=== PATIENT | female | born 1965 | race Caucasian/White ===

== ENCOUNTER 2019-02-11 16:01 | Inpatient (IN) | payer MEDICARE ==
[~2019-02-11] VITALS: Ht 165.1 cm; Wt 96.1 kg
[2019-02-11] VITALS (22 sets, daily range): BP systolic 102–145; BP diastolic 65–99; BMI 33.5
[2019-02-11 17:31] LABS: HEMATOCRIT 41.2 % (36.0-48.0); HEMOGLOBIN 13.5 g/dL (12-16); MCHC 32.8 g/dL (31.0-37.0); MCV 88.6 fL (80.0-100.0); MEAN PLATELET VOLUME 12.4 fL (7.4-10.4); PLATELET COUNT 241 10x3/uL (130-400); RBC 4.65 10x6/uL (4.00-5.40); RDW 15.3 % (11.5-14.5)
[2019-02-11 17:36] LABS: APTT 24.6 SECONDS (22.8-39.4); INR 1.14 (0.85-1.17); PROTIME 14.1 SECONDS (11.6-15.0)
[2019-02-11 17:37] LABS: APPEARANCE HAZY (CLEAR); BILIRUBIN NEGATIVE (NEGATIVE); COLOR YELLOW (YELLOW); GLUCOSE 50 mg/dL (NEGATIVE); KETONE NEGATIVE (NEGATIVE); NITRITE NEGATIVE (NEGATIVE); PROTEIN 1+ mg/dL (NEGATIVE); UROBILINOGEN NORMAL (NORMAL)
[2019-02-11 17:38] LABS: BACTERIA MANY /hpf (NONE SEEN); MUCUS <1+ /lpf (NONE SEEN); RED CELLS - URINE >50 /hpf (0-5); YEAST >1+ WITH HYPHAE /hpf (NONE SEEN)
[2019-02-11 17:46] LABS: ALBUMIN 2.9 g/dL (3.4-5.0); ALKALINE PHOSPHATASE 232 U/L (46-116); ALT (SGPT) 185 U/L (10-68); BILIRUBIN - TOTAL 0.51 mg/dL (0.2-1.3); CALC OSMOLALITY 291 mosm/kg (275-300); CALCIUM 9.6 mg/dL (8.5-10.1); CARBON DIOXIDE 22.6 mmol/L (21.0-32.0); CHLORIDE - SERUM 104 mmol/L (98-107); CREATININE - SERUM 1.2 mg/dL (0.6-1.3); GLUCOSE 154 mg/dL (74-106); POTASSIUM - SERUM 4.4 mmol/L (3.5-5.1); PROTEIN - SERUM 7.5 g/dL (6.4-8.2); SODIUM 142 mmol/L (136-145); UREA NITROGEN 28 mg/dL (7-18); eGFR NON AFRICAN AMERICAN 50 mL/min (90-120)
[2019-02-11 18:02] LABS: CKMB 1.2 U/L (0.0-3.6); CREATINE KINASE 183 UL (21-215)
[2019-02-11 18:08] LABS: TROPONIN-I 0.128 ng/mL (0.000-0.060)
[2019-02-11 18:38] LABS: EOSINOPHILS 2 % (0-7); LYMPHOCYTES 7 % (15-50); MONOCYTES 2 % (2-11); NEUTROPHILS 89 % (40-80); PLATELET ESTIMATE NORMAL
[2019-02-11] MEDS ORDERED: COREG25 MG PO (22:15)
[2019-02-11] MEDS ORDERED: NEURONTIN 300300 MG PT (22:18)
[2019-02-11] MEDS ORDERED: COZAAR100 MG PT (22:27)
[2019-02-11] MEDS ORDERED: VIGAMOX3 ML LEFT EYE (22:28)
[2019-02-11] MEDS ORDERED: PRED FORTE5 ML LEFT EYE (22:29)
[2019-02-11] MEDS ORDERED: ZOLOFT100 MG PT (22:30)
[2019-02-11] MEDS ORDERED: ULTRAM50 MG PT (22:31)
[2019-02-12] VITALS (54 sets, daily range): BP systolic 123–162; BP diastolic 84–96; Ht 165.1 cm; Wt 96.1 kg
[2019-02-12 04:18] LABS: BASOPHILS 0.1 % (0-2); EOSINOPHILS 0.6 % (0-7); HEMATOCRIT 33.1 % (36.0-48.0); IMMATURE GRANULOCYTES 0.3 % (0-5); LYMPHOCYTES 14.7 % (15-50); MCH 28.4 pg (26.0-34.0); MCHC 33.2 g/dL (31.0-37.0); MONOCYTES 8.1 % (2-11); NEUTROPHILS 76.2 % (40-80); PLATELET COUNT 213 10x3/uL (130-400); RBC 3.88 10x6/uL (4.00-5.40); RDW 14.8 % (11.5-14.5)
[2019-02-12 04:24] LABS: MCV 85.3 fL (80.0-100.0)
[2019-02-12 04:33] LABS: ANION GAP 16.8 mmol/L (8-16); CALCIUM 8.7 mg/dL (8.5-10.1); CARBON DIOXIDE 22.4 mmol/L (21.0-32.0)
[2019-02-12 04:43] LABS: POTASSIUM - SERUM 3.2 mmol/L (3.5-5.1)
[2019-02-13] VITALS (24 sets, daily range): BP systolic 139–186; BP diastolic 81–116
[2019-02-13 04:31] LABS: BASOPHILS 0.2 % (0-2); EOSINOPHILS 3.8 % (0-7); HEMATOCRIT 30.1 % (36.0-48.0); HEMOGLOBIN 9.9 g/dL (12-16); IMMATURE GRANULOCYTES 0.2 % (0-5); LYMPHOCYTES 20.6 % (15-50); MCH 28.3 pg (26.0-34.0); MCHC 32.9 g/dL (31.0-37.0); MEAN PLATELET VOLUME 11.9 fL (7.4-10.4); MONOCYTES 11.3 % (2-11); NEUTROPHILS 63.9 % (40-80); PLATELET COUNT 195 10x3/uL (130-400); RDW 15.4 % (11.5-14.5)
[2019-02-13 04:37] LABS: CALCIUM 8.7 mg/dL (8.5-10.1); CREATININE - SERUM 0.9 mg/dL (0.6-1.3)
--- NOTE | 2019-02-13 18:46 | MORECARE ---
CASE MANAGEMENT DISCHARGE SUMMARY PATIENT: RADHA LEE UNIT: [id number] ADM DATE: 02/11/19 AGE: 53 : 69 SEX: F ROOM/BED: D.2303 AUTHOR: MILLI EDWARDS PHYSICIAN: REFERRING PHYSICIAN: ISHA OLIVEIRA MD DATE OF SERVICE: 02/13/19 Discharge Plan Patient Name: RADHA LEE Facility: [facility]:[place] : 1965 Planned Disposition: Anticipated Discharge Date: Discharge Date: Expected LOS: Initial Reviewer: [email or web address] Initial Review Date: 02/11/2019 Generated: 02/13/19 7:46 pm Comments DCP- Discharge Planning Updated by [email or web address]: Guadalupe Cottrell on 02/13/19 5:[address] CM attempted to visit with patient regarding discharge planning/ needs. Patient currently on vent no family available. [facility] CM will continue to follow and assist as needed with discharge planning / needs Patient Name: RADHA LEE Page [id number] at 1846 All edits/amendments must be made on the electronic document DICTATION DATE: 02/13/191844 ALCOHOLIC COUNSELOR: WHITLEY 02/13/191844 RPT#: [id number] DC DATE: STATUS: ADM IN [facility] [address] [place] [address] END OF REPORT
[2019-02-14] VITALS (24 sets, daily range): BP systolic 140–174; BP diastolic 76–100
[2019-02-14 04:39] LABS: BASOPHILS 0.2 % (0-2); EOSINOPHILS 4.6 % (0-7); HEMATOCRIT 29.6 % (36.0-48.0); HEMOGLOBIN 9.9 g/dL (12-16); IMMATURE GRANULOCYTES 0.1 % (0-5); MCH 28.4 pg (26.0-34.0); MCHC 33.4 g/dL (31.0-37.0); MCV 84.8 fL (80.0-100.0); MEAN PLATELET VOLUME 12.3 fL (7.4-10.4); MONOCYTES 9.1 % (2-11); PLATELET COUNT 213 10x3/uL (130-400); RBC 3.49 10x6/uL (4.00-5.40); WBC 8.5 10x3/uL (4.8-10.8)
[2019-02-14 04:49] LABS: % SATURATION 17 % (15-55); IRON 30 ug/dl (35-150); TOTAL IRON BIND CAPACITY 171 ug/dl (260-445); UNSAT IRON BIND CAPACITY 141 ug/dl (150-375)
[2019-02-14 04:58] LABS: CALCIUM 9.1 mg/dL (8.5-10.1); CARBON DIOXIDE 21.2 mmol/L (21.0-32.0); CHLORIDE - SERUM 109 mmol/L (98-107); CREATININE - SERUM 0.7 mg/dL (0.6-1.3); FERRITIN 623 ng/mL (3-244); GLUCOSE 83 mg/dL (74-106); SODIUM 142 mmol/L (136-145); eGFR NON AFRICAN AMERICAN > 90 mL/min (90-120)
[2019-02-14 05:08] LABS: CALC OSMOLALITY 281 mosm/kg (275-300); UREA NITROGEN 12 mg/dL (7-18)
[2019-02-14 05:09] LABS: POTASSIUM - SERUM 2.6 mmol/L (3.5-5.1)
[2019-02-14 08:03] LABS: APPEARANCE SL CLDY (CLEAR); BACTERIA FEW /hpf (NONE SEEN); BILIRUBIN NEGATIVE (NEGATIVE); COLOR YELLOW (YELLOW); EPITHELIAL CELLS 0-5 /hpf (0-5); GLUCOSE NEGATIVE (NEGATIVE); KETONE MODERATE mg/dL (NEGATIVE); NITRITE NEGATIVE (NEGATIVE); PROTEIN NEGATIVE (NEGATIVE); SPECIFIC GRAVITY 1.015 (1.005-1.020); UROBILINOGEN NORMAL (NORMAL); WHITE CELLS - URINE 0-5 /hpf (0-5)
[2019-02-14 08:07] LABS: RED CELLS - URINE RARE /hpf (0-5); YEAST >1+ WITH HYPHAE /hpf (NONE SEEN)
--- NOTE | 2019-02-14 18:49 | MORECARE ---
CASE MANAGEMENT DISCHARGE SUMMARY PATIENT: RADHA LEE UNIT: [id number] ADM DATE: 02/11/19 AGE: 53 : 69 SEX: F ROOM/BED: D.2303 AUTHOR: MILLI EDWARDS PHYSICIAN: REFERRING PHYSICIAN: ISHA OLIVEIRA MD DATE OF SERVICE: 02/14/19 Discharge Plan Patient Name: RADHA LEE Facility: [facility]:[place] : 1965 Planned Disposition: Anticipated Discharge Date: Discharge Date: Expected LOS: Initial Reviewer: [email or web address] Initial Review Date: 02/11/2019 Generated: 02/14/19 7:49 pm Comments DCP- Discharge Planning Updated by [email or web address]: Guadalupe Cottrell on 02/14/19 5:[address] CM spoke with Pooja Rust from the [facility] and had given an update on patient. She stated that the patient was in a SNF bed @ the [facility] and had only been there 2 days prior to admission. She said patient will need PT and OT eval before they will be able to readmit. CM will continue to follow and update Pooja on patients status. DCP- Discharge Planning Updated by [email or web address]: Guadalupe Cottrell on 02/13/19 5:[address] CM attempted to visit with patient regarding discharge planning/ needs. Patient currently on vent no family available. Patient resides at The [facility] CM will continue to follow and assist as needed with discharge planning / needs Last DP export: 02/13/19 5:46 p Patient Name: RADHA LEE Page [id number] at 1849 All edits/amendments must be made on the electronic document DICTATION DATE: 02/14/191848 ACROBATIC DANCER: WHITLEY 02/14/191848 RPT#: [id number] DC DATE: STATUS: ADM IN [facility] [address] [place] [address] END OF REPORT
[2019-02-15] VITALS (24 sets, daily range): BP systolic 133–188; BP diastolic 75–99
[2019-02-15 04:06] LABS: BASOPHILS 0.4 % (0-2); EOSINOPHILS 3.8 % (0-7); HEMATOCRIT 31.5 % (36.0-48.0); HEMOGLOBIN 10.3 g/dL (12-16); IMMATURE GRANULOCYTES 0.4 % (0-5); LYMPHOCYTES 24.2 % (15-50); MCHC 32.7 g/dL (31.0-37.0); MCV 85.6 fL (80.0-100.0); MONOCYTES 12.2 % (2-11); PLATELET COUNT 200 10x3/uL (130-400); RBC 3.68 10x6/uL (4.00-5.40); RDW 15.2 % (11.5-14.5); WBC 7.7 10x3/uL (4.8-10.8)
[2019-02-15 04:24] LABS: ALBUMIN 2.4 g/dL (3.4-5.0); ALKALINE PHOSPHATASE 123 U/L (46-116); ALT (SGPT) 54 U/L (10-68); BILIRUBIN - DIRECT 0.12 mg/dL (0.00-0.30); BILIRUBIN - INDIRECT 0.46 mg/dL (0.00-1.00); BILIRUBIN - TOTAL 0.58 mg/dL (0.2-1.3); CALC OSMOLALITY 279 mosm/kg (275-300); CALCIUM 9.3 mg/dL (8.5-10.1); CARBON DIOXIDE 23.2 mmol/L (21.0-32.0); CHLORIDE - SERUM 108 mmol/L (98-107); CREATININE - SERUM 0.7 mg/dL (0.6-1.3); GLUCOSE 94 mg/dL (74-106); PROTEIN - SERUM 6.6 g/dL (6.4-8.2); SODIUM 141 mmol/L (136-145); UREA NITROGEN 9 mg/dL (7-18); VANCOMYCIN - RANDOM 26.5 ug/mL (10.0-20.0); eGFR NON AFRICAN AMERICAN > 90 mL/min (90-120)
[2019-02-15 04:26] LABS: POTASSIUM - SERUM 3.2 mmol/L (3.5-5.1)
--- NOTE | 2019-02-15 12:30 | MORECARE ---
CASE MANAGEMENT DISCHARGE SUMMARY PATIENT: RADHA LEE UNIT: [id number] ADM DATE: 02/11/19 AGE: 53 : 69 SEX: F ROOM/BED: D.2303 AUTHOR: MILLI EDWARDS PHYSICIAN: REFERRING PHYSICIAN: ISHA OLIVEIRA MD DATE OF SERVICE: 02/15/19 Discharge Plan Patient Name: RADHA LEE Facility: [facility]:[place] : 1965 Planned Disposition: Anticipated Discharge Date: Discharge Date: Expected LOS: Initial Reviewer: [email or web address] Initial Review Date: 02/11/2019 Generated: 02/15/19 1:30 pm Comments DCP- Discharge Planning Updated by [email or web address]: Guadalupe Cottrell on 02/14/19 5:[address] CM spoke with Pooja Rust from the [facility] and had given an update on patient. She stated that the patient was in a SNF bed @ the [facility] and had only been there 2 days prior to admission. She said patient will need PT and OT eval before they will be able to readmit. CM will continue to follow and update Pooja on patients status. DCP- Discharge Planning Updated by [email or web address]: Guadalupe Cottrell on 02/13/19 5:[address] CM attempted to visit with patient regarding discharge planning/ needs. Patient currently on vent no family available. Patient resides at The [facility] CM will continue to follow and assist as needed with discharge planning / needs External Providers External Provider: [facility] Next Contact Date: Service Request Date: Service Type: Resolution: Reviewer: Comments: Last DP export: 02/14/19 5:49 p Patient Name: RADHA LEE Page [id number] at 1230 All edits/amendments must be made on the electronic document DICTATION DATE: 02/15/19 1230 DOMESTIC HELPER: WHITLEY 02/15/19 1230 RPT#: [id number] DC DATE: STATUS: ADM IN [facility] [address] [place] [address] END OF REPORT
--- NOTE | 2019-02-15 17:35 | MORECARE ---
CASE MANAGEMENT DISCHARGE SUMMARY PATIENT: RADHA LEE UNIT: [id number] ADM DATE: 02/11/19 AGE: 53 : 69 SEX: F ROOM/BED: D.2303 AUTHOR: MILLI EDWARDS PHYSICIAN: REFERRING PHYSICIAN: ISHA OLIVEIRA MD DATE OF SERVICE: 02/15/19 Discharge Plan Patient Name: RADHA LEE Facility: [facility]:[place] : 1965 Planned Disposition: Senior Living Facility Anticipated Discharge Date: Discharge Date: Expected LOS: Initial Reviewer: [email or web address] Initial Review Date: 02/11/2019 Generated: 02/15/19 6:35 pm Comments DCP- Discharge Planning Updated by [email or web address]: Guadalupe Cottrell on 02/14/19 5:[address] CM spoke with Pooja Rust from the [facility] and had given an update on patient. She stated that the patient was in a SNF bed @ the [facility] and had only been there 2 days prior to admission. She said patient will need PT and OT eval before they will be able to readmit. CM will continue to follow and update Pooja on patients status. DCP- Discharge Planning Updated by [email or web address]: Guadalupe Cottrell on 02/13/19 5:[address] CM attempted to visit with patient regarding discharge planning/ needs. Patient currently on vent no family available. Patient resides at The [facility] CM will continue to follow and assist as needed with discharge planning / needs Last DP export: 02/15/19 11:30 a Patient Name: RADHA LEE Page [id number] at 1730 All edits/amendments must be made on the electronic document DICTATION DATE: 02/15/191734 ENTRY LEVEL SOFTWARE ENGINEER: WHITLEY 02/15/191734 RPT#: [id number] DC DATE: STATUS: ADM IN [facility] [address] [place] [address] END OF REPORT
[2019-02-16] VITALS (24 sets, daily range): BP systolic 128–171; BP diastolic 74–112
[2019-02-16 03:36] LABS: CALC OSMOLALITY 285 mosm/kg (275-300); CALCIUM 9.5 mg/dL (8.5-10.1); CARBON DIOXIDE 23.2 mmol/L (21.0-32.0); CHLORIDE - SERUM 111 mmol/L (98-107); CREATININE - SERUM 0.8 mg/dL (0.6-1.3); GLUCOSE 118 mg/dL (74-106); POTASSIUM - SERUM 3.5 mmol/L (3.5-5.1); SODIUM 144 mmol/L (136-145); UREA NITROGEN 8 mg/dL (7-18); eGFR NON AFRICAN AMERICAN 80 mL/min (90-120)
[2019-02-16 15:59] LABS: BASOPHILS 0.4 % (0-2); EOSINOPHILS 3.6 % (0-7); HEMATOCRIT 31.6 % (36.0-48.0); HEMOGLOBIN 10.5 g/dL (12-16); IMMATURE GRANULOCYTES 0.4 % (0-5); LYMPHOCYTES 18.6 % (15-50); MCH 28.3 pg (26.0-34.0); MCHC 33.2 g/dL (31.0-37.0); MCV 85.2 fL (80.0-100.0); MEAN PLATELET VOLUME 12.3 fL (7.4-10.4); MONOCYTES 10.3 % (2-11); NEUTROPHILS 66.7 % (40-80); PLATELET COUNT 226 10x3/uL (130-400); RBC 3.71 10x6/uL (4.00-5.40)
[2019-02-17] VITALS (39 sets, daily range): BP systolic 123–211; BP diastolic 73–117
[2019-02-17 03:13] LABS: MAGNESIUM - SERUM 1.6 mg/dL (1.8-2.4); PHOSPHOROUS 2.6 mg/dL (2.5-4.9); POTASSIUM - SERUM 3.5 mmol/L (3.5-5.1)
[2019-02-18] VITALS (62 sets, daily range): BP systolic 113–173; BP diastolic 71–97
[2019-02-19] VITALS (25 sets, daily range): BP systolic 115–147; BP diastolic 58–93
[2019-02-20] VITALS (22 sets, daily range): BP systolic 105–158; BP diastolic 62–106
[2019-02-20 04:57] LABS: MAGNESIUM - SERUM 1.9 mg/dL (1.8-2.4); POTASSIUM - SERUM 4.1 mmol/L (3.5-5.1)
--- NOTE | 2019-02-20 16:57 | MORECARE ---
CASE MANAGEMENT DISCHARGE SUMMARY PATIENT: RADHA LEE UNIT: [id number] ADM DATE: 02/11/19 AGE: 53 : 69 SEX: F ROOM/BED: D.2303 AUTHOR: MILLI EDWARDS PHYSICIAN: REFERRING PHYSICIAN: ISHA OLIVEIRA MD DATE OF SERVICE: 02/20/19 Discharge Plan Patient Name: RADHA LEE Facility: [facility] : 1965 Planned Disposition: Nursing Home Facility Anticipated Discharge Date: Discharge Date: Expected LOS: Initial Reviewer: [email or web address] Initial Review Date: 02/11/2019 Generated: 02/20/19 5:56 pm Comments DCP- Discharge Planning Updated by [email or web address]: Guadalupe Cottrell on 02/20/19 3:[address] CM notified that patient could be a candidate for LTACH. Nicole with [facility] evaluated patient and she is a candidate for Ltach. Nicole spoke with family and they will make a decision hopefully tonight and will let us know what they would like. CM will continue to follow and assist as needed with discharge planning / needs. DCP- Discharge Planning Updated by [email or web address]: Guadalupe Cottrell on 02/14/19 5:[address] CM spoke with Pooja Rust from the [facility] and had given an update on patient. She stated that the patient was in a SNF bed @ the [facility] and had only been there 2 days prior to admission. She said patient will need PT and OT eval before they will be able to readmit. CM will continue to follow and update Pooja on patients status. DCP- Discharge Planning Updated by [email or web address]: Guadalupe Cottrell on 02/13/19 5:[address] CM attempted to visit with patient regarding discharge planning/ needs. Patient currently on vent no family available. Patient resides at The [facility] CM will continue to follow and assist as needed with discharge planning / needs Last DP export: 02/15/19 4:35 p Patient Name: RADHA LEE Page [id number] at 1657 All edits/amendments must be made on the electronic document DICTATION DATE: 02/20/191655 CLINICAL DOCUMENTATION MANAGER: WHITLEY 02/20/191655 RPT#: [id number] DC DATE: STATUS: ADM IN [facility] [address] [place] [address] END OF REPORT
[2019-02-21] VITALS (7 sets, daily range): BP systolic 142–166; BP diastolic 80–96
[2019-02-21 04:13] LABS: CALC OSMOLALITY 280 mosm/kg (275-300); CALCIUM 9.4 mg/dL (8.5-10.1); CARBON DIOXIDE 29.1 mmol/L (21.0-32.0); CHLORIDE - SERUM 107 mmol/L (98-107); CREATININE - SERUM 0.5 mg/dL (0.6-1.3); GLUCOSE 101 mg/dL (74-106); POTASSIUM - SERUM 4.3 mmol/L (3.5-5.1); SODIUM 142 mmol/L (136-145); UREA NITROGEN 8 mg/dL (7-18); eGFR NON AFRICAN AMERICAN > 90 mL/min (90-120)
--- NOTE | 2019-02-21 11:38 | MORECARE ---
CASE MANAGEMENT DISCHARGE SUMMARY PATIENT: RADHA LEE UNIT: [id number] ADM DATE: 02/11/19 AGE: 53 : 69 SEX: F ROOM/BED: D.2303 AUTHOR: JERRY,DOC PHYSICIAN: REFERRING PHYSICIAN: ISHA OLIVEIRA MD DATE OF SERVICE: 02/21/19 Discharge Plan Patient Name: RADHA LEE Facility: [facility]:[place] : 1965 Planned Disposition: Custodial Facility Anticipated Discharge Date: Discharge Date: 02/21/2019 Expected LOS: Initial Reviewer: [email or web address] Initial Review Date: 02/11/2019 Generated: 02/21/19 12:37 pm Comments DCP- Discharge Planning Updated by [email or web address]: Guadalupe Cottrell on 02/21/19 10:[address] LATE ENTRY 02/20/19 @ 1730 CM RECIEVED NOTIFICATION THAT FAMILY HAVE AGREED TO LTACH AND ARE OK WITH TRANSFER IN AM. CM CALLED [facility] TO ARRANGE TRANSFER FOR 0630 AM. NURSING TO CALL REPORT IN AM. CM WILL CONTINUE TO FOLLOW AND ASSIST NEEDED WITH D/C PLANNING / NEEDS. DCP- Discharge Planning Updated by [email or web address]: Guadalupe Cottrell on 02/20/19 3:[address] CM notified that patient could be a candidate for LTACH. Nicole with [facility] evaluated patient and she is a candidate for Ltach. Nicole spoke with family and they will make a decision hopefully tonight and will let us know what they would like. CM will continue to follow and assist as needed with discharge planning / needs. DCP- Discharge Planning Updated by [email or web address]: Guadalupe Cottrell on 02/14/19 5:[address] CM spoke with Pooja Rust from the [facility] and had given an update on patient. She stated that the patient was in a SNF bed @ the [facility] and had only been there 2 days prior to admission. She said patient will need PT and OT eval before they will be able to readmit. CM will continue to follow and update Pooja on patients status. DCP- Discharge Planning Updated by [email or web address]: Guadalupe Cottrell on 02/13/19 5:[address] CM attempted to visit with patient regarding discharge planning/ needs. Patient currently on vent no family available. Patient resides at The [facility] CM will continue to follow and assist as needed with discharge planning / needs Last DP export: 02/20/19 3:57 p Patient Name: RADHA LEE Page [phone] at 1138 All edits/amendments must be made on the electronic document DICTATION DATE: 02/21/191136 MANAGER FINANCIAL REPORTING: WHITLEY 02/21/19 113 RPT#: [id number] DC DATE:02/21/19 STATUS: DIS IN [facility] [address] [place] [address] END OF REPORT
--- NOTE | 2019-02-21 18:17 | MORECARE ---
CASE MANAGEMENT DISCHARGE SUMMARY PATIENT: RADHA LEE UNIT: [id number] ADM DATE: 02/11/19 AGE: 53 : 69 SEX: F ROOM/BED: D.2303 AUTHOR: JERRY,DOC PHYSICIAN: REFERRING PHYSICIAN: ISHA OLIVEIRA MD DATE OF SERVICE: 02/21/19 Discharge Plan Patient Name: RADHA LEE Facility: [facility]:[place] : 1965 Planned Disposition: Nursing Home Facility Anticipated Discharge Date: Discharge Date: 02/21/2019 Expected LOS: Initial Reviewer: [email or web address] Initial Review Date: 02/11/2019 Generated: 02/21/19 7:17 pm Comments DCP- Discharge Planning Updated by [email or web address]: Guadalupe Cottrell on 02/21/19 10:[address] LATE ENTRY 02/20/19 @ 1730 CM RECIEVED NOTIFICATION THAT FAMILY HAVE AGREED TO LTACH AND ARE OK WITH TRANSFER IN AM. CM CALLED [facility] TO ARRANGE TRANSFER FOR 0630 AM. NURSING TO CALL REPORT IN AM. CM WILL CONTINUE TO FOLLOW AND ASSIST NEEDED WITH D/C PLANNING / NEEDS. DCP- Discharge Planning Updated by [email or web address]: Guadalupe Cottrell on 02/20/19 3:[address] CM notified that patient could be a candidate for LTACH. Nicole with [facility] evaluated patient and she is a candidate for Ltach. Nicole spoke with family and they will make a decision hopefully tonight and will let us know what they would like. CM will continue to follow and assist as needed with discharge planning / needs. DCP- Discharge Planning Updated by [email or web address]: Guadalupe Cottrell on 02/14/19 5:[address] CM spoke with Pooja Rust from the [facility] and had given an update on patient. She stated that the patient was in a SNF bed @ the [facility] and had only been there 2 days prior to admission. She said patient will need PT and OT eval before they will be able to readmit. CM will continue to follow and update Pooja on patients status. DCP- Discharge Planning Updated by [email or web address]: Guadalupe Cottrell on 02/13/19 5:[address] CM attempted to visit with patient regarding discharge planning/ needs. Patient currently on vent no family available. Patient resides at The [facility] CM will continue to follow and assist as needed with discharge planning / needs Last DP export: 02/21/19 10:37 a Patient Name: RADHA LEE Page [phone] at 1817 All edits/amendments must be made on the electronic document DICTATION DATE: 02/21/191815 QUALITY IMPROVEMENT ANALYST: WHITLEY 02/21/191815 RPT#: [id number] DC DATE:02/21/19 STATUS: DIS IN [facility] [address] [place] [address] END OF REPORT
== END 2019-02-21 06:30 | DRG 207 ==
LOC: D.ER 16:01 → D.ICU 18:08 → D.EDHOLD 18:08 → D.ICU 19:02
PROVIDERS: Emergency Medicine; Internal Medicine Nephrology; Internal Medicine Pulmonary Disease; ADMIT Emergency Medicine; ATTEND Emergency Medicine
PROC: 5A1955Z Respiratory Ventilation, Greater than 96 Consecutive Hours (ICD-10-PCS; 2019-02-11)
PROC: 05HY33Z Insertion of Infusion Device into Upper Vein, Percutaneous Approach (ICD-10-PCS; principal; 2019-02-12)
DX: J95.03 Malfunction of tracheostomy stoma (principal); A41.9 Sepsis, unspecified organism; J96.01 Acute respiratory failure with hypoxia; J15.211 Pneumonia due to Methicillin susceptible Staphylococcus aureus; J69.0 Pneumonitis due to inhalation of food and vomit; G82.50 Quadriplegia, unspecified; J98.11 Atelectasis; B37.49 Other urogenital candidiasis; H16.002 Unspecified corneal ulcer, left eye; I10 Essential (primary) hypertension; E78.5 Hyperlipidemia, unspecified; E87.6 Hypokalemia; Y95 Nosocomial condition; D50.9 Iron deficiency anemia, unspecified; E83.42 Hypomagnesemia